=== PATIENT | female | born 1965 | race Caucasian/White ===

== ENCOUNTER 2017-07-11 07:30 | Day surgery (SDC) | payer BC ==
[2017-07-11] MEDS ORDERED: Dextrose 5%-Lactated Ringers 1,000 ML IV SCH (08:00)
[2017-07-11] MEDS ORDERED: Meropenem 500 MG in Sodium Chloride 0.9% 50 ML IV ONE (08:30)
[2017-07-11] MEDS ORDERED: fentaNYL 100 MCG/2 ML SDV ONE (08:31)
[2017-07-11] MEDS ORDERED: Midazolam 1 MG/ML 2 ML SDV ONE (08:31)
[2017-07-11] MEDS ORDERED: Propofol 200 MG/20 ML SDV ONE (08:31)
--- NOTE | 2017-07-22 12:56 | OR ---
DATE OF PROCEDURE: 07/11/2017 PREOPERATIVE DIAGNOSIS: Family history of colon carcinoma. POSTOPERATIVE DIAGNOSIS: Normal colonoscopic examination. OPERATIVE PROCEDURE: Flexible colonoscopy. ANESTHESIA: IV sedation. INDICATION FOR PROCEDURE: A 51-year-old female presenting for a screening colonoscopy. She does have a family history of her father having colon carcinoma. Plan is to proceed with a flexible colonoscopy, biopsies, and/or polypectomy as indicated. Potential risks including bleeding and perforation were discussed, and the patient wishes to proceed. DETAILS OF PROCEDURE: The patient was taken to the operating room and placed in a left lateral decubitus position. IV sedation was administered, after which the initial digital rectal exam was performed and was unremarkable. Colonoscope was then passed into the rectum with retroflexion revealing uncomplicated hemorrhoidal columns. The scope was eventually passed to the level of the cecum. The prep was quite good with there only being a small amount of liquid stool present to that level, no abnormalities were noted. Specifically, no diverticula, no areas of colitis, no polyps or other signs of neoplasia. The scope was then withdrawn. The above findings reconfirmed and the procedure concluded. The patient was taken to the recovery room in satisfactory condition. The recommendations given the family history of colon carcinoma would be to repeat the colonoscopy in 5 years. Ricardo Rico MD /[id number]
== END 2017-07-11 09:57 | disposition home or self-care (01) ==
LOC: JP.SDS 07:30
PROVIDERS: ATTEND Surgery
DX: Z12.11 Encounter for screening for malignant neoplasm of colon (principal); I10 Essential (primary) hypertension; E11.9 Type 2 diabetes mellitus without complications; F41.9 Anxiety disorder, unspecified; F32.9 Major depressive disorder, single episode, unspecified; Z80.0 Family history of malignant neoplasm of digestive organs; Z88.0 Allergy status to penicillin; Z88.1 Allergy status to other antibiotic agents; Z88.8 Allergy status to other drugs, medicaments and biological substances; Z91.040 Latex allergy status
CPT/HCPCS: 45378; J2185; J2250; J2704; J3010; J7042; J7050

== ENCOUNTER 2022-07-04 09:52 | Emergency (ER) | payer BC ==
[2022-07-04] MEDS ORDERED: Nitroglycerin 0.4 MG Tab.SL SL ONE (10:49)
[2022-07-04 11:06] LABS: TROPONIN I HIGH SENSITIVITY 9.1 pg/mL (<=60.3)
[2022-07-04] MEDS ORDERED: Diltiazem 180 MG Cap.CD PO ONE (11:10)
== END 2022-07-04 11:39 | disposition home or self-care (01) ==
LOC: JP.ED 09:52
DX: I16.0 Hypertensive urgency (principal); M19.90 Unspecified osteoarthritis, unspecified site; E11.9 Type 2 diabetes mellitus without complications; Z88.0 Allergy status to penicillin; Z88.8 Allergy status to other drugs, medicaments and biological substances; Z88.1 Allergy status to other antibiotic agents; Z91.040 Latex allergy status; Z88.5 Allergy status to narcotic agent; Z79.84 Long term (current) use of oral hypoglycemic drugs; Z79.899 Other long term (current) drug therapy
CPT/HCPCS: 36415; 80048; 84484; 85025; 93005; 99283; A9270

== ENCOUNTER 2024-12-08 22:30 | Emergency (ER) | payer BC ==
[2024-12-08 23:25] LABS: BASOPHILS ABSOLUTE AUTO 0.06 K/uL (0.00-0.10); BASOPHILS PERCENT AUTO 0.7 % (0.1-1.3); EOSINOPHILS PERCENT AUTO 3.6 % (0.0-5.4); HEMATOCRIT 33.4 % (34.3-46.0); HEMOGLOBIN 10.9 g/dL (11.2-15.5); IMMATURE GRAN ABSOLUTE AUTO 0.03 K/uL (0.00-0.23); IMMATURE GRAN PERCENT AUTO 0.4 % (0.0-0.7); LYMPHOCYTES ABSOLUTE AUTO 2.23 K/uL (0.8-3.3); LYMPHOCYTES PERCENT AUTO 27.1 % (11.4-47.7); MEAN CORPUSCULAR HEMOGLOBIN 29.7 pg (31.6-35.5); MEAN CORPUSCULAR HGB CONC 32.6 g/dL (31.6-35.5); MONOCYTES ABSOLUTE AUTO 0.93 K/uL (0.20-0.90); MONOCYTES PERCENT AUTO 11.3 % (3.3-12.6); NEUTROPHILS ABSOLUTE AUTO 4.69 K/uL (1.0-7.6); NEUTROPHILS PERCENT AUTO 56.9 % (40.0-78.1); PLATELET COUNT,PLT 360 K/uL (130-375); RED BLOOD CELL COUNT 3.67 M/uL (3.77-5.24); WHITE BLOOD CELL COUNT,WBC 8.2 K/uL (3.2-11.0)
[2024-12-08] MEDS: cloNIDine 0.1 MG Tab PO ONE (23:28)
[2024-12-08 23:47] LABS: EST CRCL DRUG DOSING (CG) 42.97 mL/min; POTASSIUM,K 3.4 mmol/L (3.6-5.2); TROPONIN I HIGH SENSITIVITY 7.5 pg/mL (<=60.3)
[2024-12-08 23:50] LABS: ANION GAP 13.4 mmol/L (5.0-14.0)
== END 2024-12-09 00:57 | disposition home or self-care (01) ==
LOC: JP.ED 22:30
DX: I16.0 Hypertensive urgency (principal); E11.9 Type 2 diabetes mellitus without complications; Z88.8 Allergy status to other drugs, medicaments and biological substances; Z91.040 Latex allergy status; Z88.0 Allergy status to penicillin; Z88.1 Allergy status to other antibiotic agents; Z79.899 Other long term (current) drug therapy; Z79.84 Long term (current) use of oral hypoglycemic drugs
CPT/HCPCS: 36415; 80048; 84484; 85025; 93005; 99285; A9270; 93010; 99283

== ENCOUNTER 2025-01-07 08:07 | Day surgery (SDC) | payer BC ==
[2025-01-07] MEDS: Lactated Ringers 1,000 ML IV SCH (08:46)
[2025-01-07] MEDS ORDERED: fentaNYL 100 MCG/2 ML SDV ONE (08:54)
[2025-01-07] MEDS ORDERED: Propofol 200 MG/20 ML SDV ONE (08:54)
[2025-01-07] MEDS ORDERED: Midazolam 1 MG/ML 2 ML SDV ONE (08:54)
== END 2025-01-07 11:01 | disposition home or self-care (01) ==
LOC: JP.SDS 08:07
PROVIDERS: ATTEND Surgery
DX: Z12.11 Encounter for screening for malignant neoplasm of colon (principal); K57.30 Diverticulosis of large intestine without perforation or abscess without bleeding; I10 Essential (primary) hypertension; Z80.0 Family history of malignant neoplasm of digestive organs
CPT/HCPCS: 45378; J2250; J2704; J3010; J7120; 00812-QZ